=== PATIENT | female | born 1940 | race Hispanic/Latino ===

== ENCOUNTER 2016-11-19 09:01 | Inpatient (IN) | payer MEDICARE, BC ==
[2016-11-19 09:16] VITALS: BMI 17.7
--- NOTE | 2016-11-19 09:31 | ED PDOC ---
Arrival/HPI - General Chief Complaint: ENT Problem Time Seen by Provider: 11/19/16 09:20 Historian: Patient - History of Present Illness Narrative History of Present Illness (Text): 11/19/16 09:30 76 year old female whose past medical history includes scleroderma, Celiac's, COPD, hypertension, and thyroid disease sent to the emergency department by Dr. Booker for vomiting and difficulty swallowing. No fever or other complaints. Time/Duration: < week Symptom Onset: Gradual Symptom Course: Unchanged Modifying Factors (Text): None Associated Symptoms (Text): None Past Medical History - Provider Review Nursing Documentation Reviewed: Yes - Infectious Disease Hx of Infectious Diseases: None - Cardiac Hx Hypertension: Yes (pulmonary htn) - Pulmonary Hx Asthma: Yes Hx Chronic Obstructive Pulmonary Disease (COPD): Yes - Neurological Hx Migraine: Yes - HEENT Hx HEENT Disorder: (sinus infections) - Endocrine/Metabolic Hx Hypothyroidism: Yes - Integumentary Hx Dermatological Disorder: Yes (scleroderma dx 2 yrs ago) Other/Comment: scleroderma noted to hands arms and face - Musculoskeletal/Rheumatological Hx Falls: No - Gastrointestinal Hx Gastroesophageal Reflux: Yes (hiatal hernia) - Psychiatric Hx Depression: No Hx Emotional Abuse: No Hx Physical Abuse: No Hx Substance Use: No - Surgical History Hx Dilation and Curettage: Yes Hx Hysterectomy: Yes (ovaries removed) Other/Comment: "Mastoid surgery" - Suicidal Assessment Feels Threatened In Home Enviroment: No Family/Social History - Physician Review Nursing Documentation Reviewed: Yes Family/Social History: Unknown Family HX Smoking Status: Never Smoked Hx Alcohol Use: No Hx Substance Use: No Allergies/Home Meds Allergies/Adverse Reactions: Allergies Sulfa (Sulfonamide Antibiotics) Allergy (Verified 11/19/16 09:16) SWELLING Home Medications: Home Meds Medication Instructions Recorded Confirmed Desloratadine [Clarinex] 5 mg PO DAILY 11/13/13 11/19/16 Levothyroxine [Synthroid] 50 mcg PO DAILY 11/13/13 11/19/16 Tiotropium [Spiriva] 18 mcg IH DAILY 11/13/13 11/19/16 Folic Acid 1 mg PO DAILY 11/19/16 11/19/16 Omeprazole 20 mg PO DAILY 11/19/16 11/19/16 Sildenafil [Revatio] 20 mg PO DAILY 04/28/17 04/28/17 Spironolactone [Aldactone] 25 mg PO DAILY 11/19/16 11/19/16 Review of Systems - Physician Review All systems were reviewed & negative as marked: Yes - Review of Systems Constitutional: absent: Fevers Cardiovascular: absent: Chest Pain Gastrointestinal: Vomiting Physical Exam Vital Signs Reviewed: Yes Vital Signs Temp Pulse Resp BP Pulse Ox 11/19/16 12:30 91 H 17 140/75 90 L 11/19/16 12:19 98.0 F 69 18 128/74 95 11/19/16 11:02 75 18 131/77 95 11/19/16 10:41 77 17 131/77 93 L 11/19/16 09:14 98.3 F 79 18 138/72 98 Temperature: Afebrile Blood Pressure: Normal Pulse: Regular Respiratory Rate: Normal Appearance: Positive for: Well-Appearing, Non-Toxic, Comfortable Pain Distress: None Mental Status: Positive for: Alert and Oriented X 3 - Systems Exam Head: Present: Atraumatic, Normocephalic Pupils: Present: PERRL Extroacular Muscles: Present: EOMI Conjunctiva: Present: Normal Mouth: Present: Moist Mucous Membranes Neck: Present: Normal Range of Motion Respiratory/Chest: Present: Clear to Auscultation, Good Air Exchange. No: Respiratory Distress, Accessory Muscle Use Cardiovascular: Present: Regular Rate and Rhythm, Normal S1, S2. No: Murmurs Abdomen: Present: Normal Bowel Sounds. No: Tenderness, Distention, Peritoneal Signs Back: Present: Normal Inspection Upper Extremity: Present: Normal Inspection. No: Cyanosis, Edema Lower Extremity: Present: Normal Inspection. No: Edema Neurological: Present: GCS=15, CN II-XII Intact, Speech Normal Skin: Present: Warm, Dry, Normal Color. No: Rashes Psychiatric: Present: Alert, Oriented x 3, Normal Insight, Normal Concentration Medical Decision Making ED Course and Treatment: Impression: 76 year old female whose past medical history includes scleroderma, Celiac's, COPD, hypertension, and thyroid disease sent to the emergency department by Dr. Booker for vomiting and difficulty swallowing. Differential Diagnosis include but are not limited to: Plan: -- CT Neck -- Labs -- Reassess and disposition Prior Visits: Notes and results from previous visits were reviewed. Patient last seen in ED on 12/03/14 for dizziness and discharged home. Progress Notes: PROCEDURE: CT Neck, Chest, without contrast Zone Supervisor Firearms : Conor Matos MD IMPRESSION: Dilated fluid-filled esophagus. Large pericardial effusion. Small left pleural effusion Case discussed with Dr. Booker who accepts for admission, requests Dr. Ricci for consult. Dr. Ricci paged. 11/19/16 12:[address] Barakat, advises will likely do endoscopy today. - Lab Interpretations Lab Results: 11/19/16 09:30 11/19/16 09:30 Lab Results 11/19/16 09:30: Sodium 133, Potassium 4.4, Chloride 92 L, Carbon Dioxide 32, Anion Gap 13, BUN 13, Creatinine 0.6, Est GFR ( Amer) > 60, Est GFR (Non- Af Amer) > 60, Random Glucose 73, Calcium 9.3, Total Bilirubin 0.7, AST 32, ALT 34, Alkaline Phosphatase 101, Total Protein 8.2, Albumin 3.9, Globulin 4.3, Albumin/Globulin Ratio 0.9 L 11/19/16 09:30: PT 11.8, INR 1.09 H, APTT 29.2 11/19/16 09:30: WBC 6.9, RBC 4.14, Hgb 13.7, Hct 42.0, MCV 101.4, MCH 33.1, MCHC 32.6, RDW 13.4, Plt Count 272, MPV 9.8, Gran % 67.9, Lymph % (Auto) 20.5 L , [place] % (Auto) 8.4 H, Eos % (Auto) 2.6, Baso % (Auto) 0.6, Gran # 4.71, Lymph # 1.4, [place] # 0.6, Eos # 0.2, Baso # 0.04 - RAD Interpretation Radiology Orders: 11/19/16 09:25 NECK & CHEST W/O CONTRAST [CT] Stat - Medication Orders Current Medication Orders: Dextrose/Sodium Chloride (Dextrose 5%/0.45% Ns 1000 Ml) 1,000 mls @ 70 mls/hr IV .[id number] RAY Last Admin: 11/19/16 12:46 Dose: 70 mls/hr Levothyroxine Sodium (Synthroid) 50 mcg PO DAILY RAY Pantoprazole Sodium (Protonix Inj) 40 mg IVP DAILY RAY Last Admin: 11/19/16 12:46 Dose: 40 mg - Scribe Statement The provider has reviewed the documentation as recorded by the Cosme Forrest Provider Cosme Attestation: All medical record entries made by the Cosme were at my direction and personally dictated by me. I have reviewed the chart and agree that the record accurately reflects my personal performance of the history, physical exam, medical decision making, and the department course for this patient. I have also personally directed, reviewed, and agree with the discharge instructions and disposition. Disposition/Present on Arrival - Present on Arrival Any Indicators Present on Arrival: No History of DVT/PE: No History of Uncontrolled Diabetes: No Urinary Catheter: No History of Decub. Ulcer: No History Surgical Site Infection Following: None - Disposition Have Diagnosis and Disposition been Completed?: Yes Diagnosis: Esophageal stricture, Scleroderma Disposition: HOSPITALIZED Disposition Time: 12:00 Condition: FAIR
[2016-11-19 09:50] LABS: ADD MANUAL DIFF? NO
[2016-11-19 09:55] LABS: BASO # 0.04 [, K/mm3] (0.0-2.0); BASO % 0.6 % (0.0-3.0); EOS # 0.2 (0.0-0.7); EOS % 2.6 % (1.5-5.0); GRAN # 4.71 (1.4-6.5); GRAN % 67.9 % (50.0-68.0); LYMPH # 1.4 (1.2-3.4); LYMPH % 20.5 % (22.0-35.0); MEAN CELL VOLUME 101.4 fL (80.0-105.0); MEAN CORPUSCULAR HEMOGLOBIN 33.1 pg (25.0-35.0); MEAN CORPUSCULAR HGB CONC 32.6 g/dl (31.0-37.0); MEAN PLATELET VOLUME 9.8 fl (7.0-11.0); MONO # 0.6 (0.1-0.6); MONO % 8.4 % (1.0-6.0); PLATELET COUNT 272 [, 10^3/uL] (120.0-450.0); RED CELL DISTRIBUTION WIDTH 13.4 % (11.5-14.5); WHITE BLOOD COUNT 6.9 [, 10^3/ul] (4.5-11.0)
[2016-11-19 10:06] LABS: INR 1.09 (0.93-1.08); PARTIAL THROMBOPLASTIN TIME 29.2 Seconds (23.7-30.8)
[2016-11-19 10:07] LABS: ALB/GLOB RATIO 0.9 (1.1-1.8); ALKALINE PHOSPHATASE 101 U/L (38-133); ALT/SGPT 34 U/L (7-56); AST/SGOT 32 U/L (15-39); BILIRUBIN,TOTAL 0.7 mg/dL (0.2-1.3); BLOOD UREA NITROGEN 13 mg/dL (7-21); CALCIUM 9.3 mg/dL (8.4-10.5); CARBON DIOXIDE 32 mmol/L (21-33); CHLORIDE 92 mmol/L (98-107); GFR AFRICAN-AMERICAN > 60; GLUCOSE,RANDOM 73 mg/dL (70-110); POTASSIUM 4.4 mmol/L (3.6-5.0); SODIUM 133 mmol/L (132-148); TOTAL PROTEIN 8.2 g/dL (5.8-8.3)
--- NOTE | 2016-11-19 10:53 | CT ---
PROCEDURE: CT Neck, Chest, without contrast HISTORY: dysphagia COMPARISON: None. TECHNIQUE: Contrast dose: Radiation dose: Total exam DLP = 475 mGy-cm. This CT exam was performed using one or more of the following dose reduction techniques: Automated exposure control, adjustment of the mA and/or kV according to patient size, and/or use of iterative reconstruction technique. FINDINGS: CT OF THE NECK: PHARYNX: Nasopharynx: Unremarkable. Oropharnx: Unremarkable. Hypopharynx: Unremarkable. LYMPH NODES: Unremarkable. VASCULATURE: Unremarkable. GLANDS: Unremarkable. CERVICAL SPINE: Unremarkable. CT OF THE CHEST: LUNGS: Patchy bilateral infiltrates are seen posteriorly in the upper lobes. Image 28 series 4. MEDIASTINUM: Unremarkable thoracic aorta. No aneurysm or dissection. Normal sized heart. Pulmonary arterial truck unremarkable. No vascular congestion. No lymphadenopathy. The esophagus is dilated and filled with fluid and debris. There is no evidence of a discrete mass. This could be due to an esophageal stricture distally. PLEURA: There is a large pericardial effusion measuring 34 mm in maximal thickness. There is a small left pleural effusion BONES: No fracture. No destructive lesion. IMPRESSION: Dilated fluid-filled esophagus. Large pericardial effusion. Small left pleural effusion
[2016-11-19] MEDS ORDERED: Sodium Chloride 0.9% 1,000 ML IV SCH ×2 (12:00→16:30)
[2016-11-19] MEDS ORDERED: Dextrose 5%/0.45% NS 1,000 ML IV SCH (12:30)
[2016-11-19] MEDS ORDERED: Midazolam 2 MG/2 ML VIAL ONE (14:18)
[2016-11-19] MEDS ORDERED: Propofol 10 mg/ml Inj (20 ML) ONE (14:18)
[2016-11-19] MEDS: Sildenafil 20 MG TAB PO SCH (17:53)
[2016-11-19] MEDS: Dextrose 5%/0.45% NS 1,000 ML IV SCH (17:54)
[2016-11-19] MEDS ORDERED: Benzocaine/Menthol (Cepacol) Lozenge MT PRN (18:45)
[2016-11-19] MEDS ORDERED: Pneumococcal 23-Valent Vaccine IM ONE (20:52)
--- NOTE | 2016-11-19 22:20 | PN ---
DATE: 11/19/2016 HISTORY OF PRESENT ILLNESS: The patient is 76 years old, with a significant past medical history of scleroderma. She stated, according to the daughter who was by the bedside, she had potatoes, baby ca rrots and steak last night and in the middle of night, she started to have retrosternal discomfort an d this morning she was unable to even drink water and that was coming out, so they brought her to [facility] Room for further evaluation. Denies any fever or chills. No hemoptysis, no hematemesis, no f ever, no chills. PAST MEDICAL HISTORY: Is significant for: 1. Hypertension. 2. Scleroderma. 3. Peptic ulcer disease. 4. Pulmonary hypertension. 5. Carotid artery disease. 6. History of hypothyroidism. 7. History of intermittent migraine headaches. 8. COPD. ALLERGIES: SHE IS ALLERGIC TO SULFONAMIDES. MEDICATIONS AT HOME: She is on omeprazole 20 mg daily, Aldactone 25 daily, Revatio 20 mg daily, Synt hroid 50 mcg daily, Spiriva 18 mcg daily, Clarinex 5 mg daily and Folic acid 1 mg daily. SOCIAL HISTORY: She lives with relatives. Not much ambulatory. PHYSICAL EXAMINATION: GENERAL: She is awake and alert, able to communicate. VITAL SIGNS: She is afebrile, pulse 85, respirations 12, blood pressure 118/61. LUNGS: Bilateral fair airflow, no rhonchi or crackle. HEART: S1, S2 audible. ABDOMEN: Soft, nontender, no rebound, no guarding. NEUROLOGIC: The patient is awake and alert, communicative. EXTREMITIES: Bilateral leg, no edema. LABORATORY DATA: WBC 6.9, hemoglobin 13.7, hematocrit 42, platelets 72. PT 11.8, INR 1.09. Nursing Home Social Worker ry: Sodium 133, potassium 4.4, chloride 92, CO2 of 32, BUN 13, creatinine 0.6, blood sugar of 73. L FTs are within normal limits. CT scan of the chest and neck shows dilated esophagus, large per icardial effusion and small left pleural effusion. ASSESSMENT: 1. Foreign body, esophageal impaction. 2. Esophageal dilatation. 3. Scleroderma. 4. Pulmonary hypertension. 5. Hypothyroidism. PLAN: Will keep the patient n.p.o.; the patient was kept n.p.o., had endoscopy done by Dr. Ricci and foreign body was removed. She will be started on clear liquid and will resume her usual medicati on. I will continue her on a small dose of IV fluid. Continue Revatio and continue her on nebulizer treatment. If the patient remains stable, she will be discharged in a.m. I also instructed the fam luis member that she should be on pureed diet and with each bite she should drink some liquids to make it moist and keep her head at 45 degree all the time. Will reevaluate the patient in a.m. Mary Ellen Gonzalez MD cc: [phone] TT: 11/19/2016 19:26:41 Confirmation # [id number] Dictation # [id number] dinorah
[2016-11-20] MEDS ORDERED: Levothyroxine 50 MCG TAB PO SCH ×2 (06:30→10:00)
[2016-11-20] MEDS: Dextrose 5%/0.45% NS 1,000 ML IV SCH ×2 (06:57→11:24)
[2016-11-20 07:26] LABS: ADD MANUAL DIFF? NO
[2016-11-20 07:29] VITALS: BP 107/67; PULSE 80; RESP 20; TEMP 98.2; O2SAT 94
[2016-11-20 07:29] LABS: BASO # 0.05 [, K/mm3] (0.0-2.0); BASO % 0.6 % (0.0-3.0); EOS # 0.1 (0.0-0.7); GRAN # 6.51 (1.4-6.5); GRAN % 73.2 % (50.0-68.0); HEMATOCRIT 37.2 % (36.0-48.0); LYMPH # 1.4 (1.2-3.4); LYMPH % 15.7 % (22.0-35.0); MEAN CELL VOLUME 101.4 fL (80.0-105.0); MEAN CORPUSCULAR HGB CONC 32.5 g/dl (31.0-37.0); MEAN PLATELET VOLUME 9.8 fl (7.0-11.0); MONO # 0.8 (0.1-0.6); MONO % 9.5 % (1.0-6.0); PLATELET COUNT 254 [, 10^3/uL] (120.0-450.0); RED CELL DISTRIBUTION WIDTH 13.4 % (11.5-14.5); WHITE BLOOD COUNT 8.9 [, 10^3/ul] (4.5-11.0)
[2016-11-20 07:40] LABS: ALB/GLOB RATIO 0.9 (1.1-1.8); ALKALINE PHOSPHATASE 82 U/L (38-133); ALT/SGPT 34 U/L (7-56); AST/SGOT 34 U/L (15-39); BILIRUBIN,TOTAL 0.6 mg/dL (0.2-1.3); BLOOD UREA NITROGEN 12 mg/dL (7-21); CALCIUM 8.6 mg/dL (8.4-10.5); CARBON DIOXIDE 28 mmol/L (21-33); CHLORIDE 96 mmol/L (95-110); GFR AFRICAN-AMERICAN > 60; GLUCOSE,RANDOM 77 mg/dL (70-110); POTASSIUM 4.3 mmol/L (3.6-5.0); SODIUM 129 mmol/L (132-148); TOTAL PROTEIN 6.7 g/dL (5.8-8.3)
[2016-11-20] MEDS: Sildenafil 20 MG TAB PO SCH (11:19)
--- NOTE | 2016-11-20 14:45 | CON ---
DATE: 11/19/2016 REASON FOR CONSULTATION: Dysphagia. This 76-year-old patient with long history of scleroderma was eating some carrots and meat piece yesterday. After that, she developed great difficulty in swallowing and not able to even swallow the liquids. The patient has been wretching and vomiting. No bleeding. The patient did throw up some carrots. The patient is still not able to keep food or even liquids down. She came to the Emergency Room. No chest pain. Presently comfortable on exam. PAST MEDICAL HISTORY: Significant for hypertension and scleroderma, peptic ulcer disease, pulmonary hypertension, hypothyroidism this time ALLERGIES: SHE IS ALLERGIC TO SULFONOMIDES. SOCIAL HISTORY: Denies smoking. No alcohol. REVIEW OF SYSTEMS: Positive as above. Other systems reviewed. PHYSICAL EXAMINATION: GENERAL: The patient is lying on the bed, not in acute distress. HEENT: Atraumatic, anicteric. NECK: Supple. HEART: S1, S2 heard. LUNGS: Bilateral air entry present. ABDOMEN: Soft. There is no mass palpable. No tenderness. EXTREMITIES: No edema. NEUROLOGIC: Alert, oriented. Moves all the extremities. LABORATORY DATA: Hemoglobin 13.7, hematocrit 42, WBC 6.9. INR 1.06. LFTs normal. CT of the chest and neck was reviewed air fluid level in esophagus. IMPRESSION: This 76-year-old patient with scleroderma, presents with acute dysphagia, rule out foreign body impaction in the esophagus. The patient does have air fluid levels suggestive of obstruction. The informed consent was obtained for endoscopic evaluation. ENDOSCOPY The patient subsequently underwent upper GI endoscopy after intubation. The patient's oral cavity was small, unable to open the mouth for passage of the mouth piece. . After intubation, carefully the 27-scope was passed on the side with gentle maneuver A large amount of carrots and meat pieces removed. The patient tolerated the procedure and was sent to the [place] floor. PLAN The present plan is to start the patient on a liquid diet. The patient will need to be on only diet in the future, in view of slightly tortuous esophagus and also scleroderma with significant motility disfunction, which is a contributing factor. Thank you very much for allowing me to participate in the care of this patient. Jose Luis Ricci MD cc: [phone] TT: 11/20/2016 08:22:09 Confirmation # [id number] Dictation # [id number] jn SHELLY
--- NOTE | 2016-11-20 22:10 | PN ---
DATE: 11/20/2016 SUBJECTIVE: This patient was seen and evaluated earlier. The patient is comfortable. The patient w as tolerating the clear liquid diet. PHYSICAL EXAMINATION: VITAL SIGNS: Temperature is 97, blood pressure is 121/69, pulse is 83, O2 sat is 96. HEENT: Atraumatic, anicteric. NECK: Supple. HEART: S1, S2 heard. LUNGS: Bilateral air entry present. ABDOMEN: Soft. There is no mass palpable. No tenderness. IMPRESSION: This is a 76-year-old patient with scleroderma who had a food impaction in the esophagus and who is status post esophagogastroduodenoscopy and removal on clear liquids, tolerating. Will ad mcgowan the diet to pureed diet. The concern is the patient has scleroderma with an angulated esophagu s and also significant motility dysfunction. It is a reasonable thing for her age group with signifi cant dysmotility problem. She would benefit from long-term pureed diet. The patient also advised to take small amounts and be careful before swallowing. The technically difficult endoscopy was challenging because the patient is unable to open the mouth a nd only small area. She was able to open and we were fortunate to intubate and then were able to do it carefully. The risks had been explained to the patient to avoid in the future similar issues. Thank you very much for allowing us to participate in the care of the patient. Jose Luis Ricci MD cc: [phone] TT: 11/20/2016 22:09:39 Confirmation # [id number] Dictation # [id number] dn
--- NOTE | 2017-01-13 08:11 | DS ---
ADDENDUM to progress noted written on 11/19/2016. The patient was brought in by the family member after she had dysphagia and difficulty swallowing. S he was nauseous. She was vomiting. She was found to have foreign body in esophagus. Dr. Radhames cunha id emergency endoscopy and all the food particles were removed. Post procedure, the patient was give n food, she tolerated well. She was discharged on 11/19 in stable condition. Mary Ellen Gonzalez MD cc: [phone] TT: 01/12/2017 22:31:57 jn
== END 2016-11-20 14:16 | disposition home or self-care (01) | DRG 394 ==
LOC: ED 09:01 → ERH 11:18 → 5RNO 13:08
PROVIDERS: ADMIT Internal Medicine; ATTEND Internal Medicine
PROC: 0DC58ZZ Extirpation of Matter from Esophagus, Via Natural or Artificial Opening Endoscopic (ICD-10-PCS; 2016-11-19)
PROC: 0D758ZZ Dilation of Esophagus, Via Natural or Artificial Opening Endoscopic (ICD-10-PCS; principal; 2016-11-19 16:00)
DX: T18.128A Food in esophagus causing other injury, initial encounter (principal); I31.3 Pericardial effusion (noninflammatory); J90 Pleural effusion, not elsewhere classified; I27.2 Other secondary pulmonary hypertension; M34.9 Systemic sclerosis, unspecified; K22.10 Ulcer of esophagus without bleeding; J44.9 Chronic obstructive pulmonary disease, unspecified; I10 Essential (primary) hypertension; J45.909 Unspecified asthma, uncomplicated; G43.909 Migraine, unspecified, not intractable, without status migrainosus; E03.9 Hypothyroidism, unspecified; K21.9 Gastro-esophageal reflux disease without esophagitis; K44.9 Diaphragmatic hernia without obstruction or gangrene; K22.2 Esophageal obstruction; Z87.11 Personal history of peptic ulcer disease; Z90.710 Acquired absence of both cervix and uterus; Z90.722 Acquired absence of ovaries, bilateral; Z79.899 Other long term (current) drug therapy; Z88.2 Allergy status to sulfonamides; R40.2412 Glasgow coma scale score 13-15, at arrival to emergency department

== ENCOUNTER 2017-08-24 03:01 | Emergency (ER) | payer MEDICARE ==
[2017-08-24 03:21] VITALS: BMI 15.0
[2017-08-24 03:26] VITALS: TEMP 97.6
--- NOTE | 2017-08-24 03:26 | ED PDOC ---
Arrival/HPI - General Time Seen by Provider: 08/24/17 03:04 Historian: Patient - History of Present Illness Narrative History of Present Illness (Text): 08/24/17 03:15 Kristina Lopez is a 77 year old female, whose past medical history includes hypertension, CVA, COPD, and hypothyroidism, who presents to the emergency department complaining of weakness s/p mechanical fall. Patient reports she slipped, fell, and then began to feel weakness. Patient also notes having diarrhea since one day ago. Additionally, she states being on hospice and came to the emergency department for a check up. No other complaints were made. Patient did not hit her head or lose consciousness. Time/Duration: Prior to Arrival Symptom Onset: Sudden Symptom Course: Unchanged Activities at Onset: Light Context: Slipped Past Medical History - Provider Review Nursing Documentation Reviewed: Yes - Infectious Disease Hx of Infectious Diseases: None - Cardiac Hx Cardiac Disorders: Yes Hx Hypertension: Yes (pulmonary htn) Other/Comment: CAROTID STENOSIS - Pulmonary Hx Respiratory Disorders: Yes Hx Asthma: Yes Hx Chronic Obstructive Pulmonary Disease (COPD): Yes (HOME O2) Other/Comment: SMOKED CIGARETTES H/O QUIT - Neurological Hx Neurological Disorder: Yes HX Cerebrovascular Accident: Yes Hx Migraine: Yes - HEENT Hx HEENT Disorder: Yes (sinus infections) - Endocrine/Metabolic Hx Endocrine Disorders: Yes Hx Hypothyroidism: Yes - Hematological/Oncological Hx Blood Transfusions: No - Integumentary Hx Dermatological Disorder: Yes (scleroderma dx 2 yrs ago) Other/Comment: scleroderma noted to hands arms and face - Musculoskeletal/Rheumatological Hx Musculoskeletal Disorders: Yes (MASTOID SX) Hx Falls: No - Gastrointestinal Hx Gastrointestinal Disorders: Yes Hx Gastroesophageal Reflux: Yes (hiatal hernia) Other/Comment: CELIAC DSE. - Genitourinary/Gynecological Hx Genitourinary Disorders: Yes (HYSTERECTOMY) - Psychiatric Hx Depression: No Hx Emotional Abuse: No Hx Physical Abuse: No Hx Substance Use: No - Surgical History Hx Hysterectomy: Yes Other/Comment: MASTOID SX - Anesthesia Hx Anesthesia Reactions: No Hx Malignant Hyperthermia: No - Suicidal Assessment Feels Threatened In Home Enviroment: No Family/Social History - Physician Review Nursing Documentation Reviewed: Yes Family/Social History: Unknown Family HX Smoking Status: Former Smoker Hx Alcohol Use: Yes (OCCASIONALLY OR NOT AT ALL) Hx Substance Use: No Allergies/Home Meds Allergies/Adverse Reactions: Allergies Sulfa (Sulfonamide Antibiotics) Allergy (Verified 11/19/16 18:46) SWELLING Home Medications: Home Meds Medication Instructions Recorded Confirmed Omeprazole 20 mg PO DAILY 11/19/16 08/24/17 Sildenafil [Revatio] 20 mg PO TID 11/19/16 08/24/17 Spironolactone [Aldactone] 1 - 2 tab PO DAILY 11/19/16 08/24/17 Ambrisentan [Letairis] 5 mg PO DAILY 08/24/17 08/24/17 Umeclidinium Brm/Vilanterol Tr 1 each IH DAILY 08/24/17 08/24/17 [Anoro Ellipta 62.5-25 Mcg INH] Review of Systems - Physician Review All systems were reviewed & negative as marked: Yes - Review of Systems Constitutional: Fatigue. absent: Fevers Respiratory: absent: SOB Cardiovascular: absent: Chest Pain Gastrointestinal: absent: Abdominal Pain Neurological: absent: Headache Physical Exam Vital Signs Temp Pulse Resp BP Pulse Ox 08/24/17 07:00 80 18 95/60 L 95 08/24/17 05:18 84 22 125/85 93 L 08/24/17 03:21 97.6 F 66 20 126/86 97 Appearance: Positive for: Well-Appearing, Non-Toxic, Comfortable Pain Distress: None Mental Status: Positive for: Alert and Oriented X 3 - Systems Exam Head: Present: Atraumatic, Normocephalic Pupils: Present: PERRL Extroacular Muscles: Present: EOMI Conjunctiva: Present: Normal Neck: Present: Normal Range of Motion. No: MIDLINE TENDERNESS Respiratory/Chest: Present: Tachypneic. No: Good Air Exchange Cardiovascular: Present: Regular Rate and Rhythm, Normal S1, S2. No: Murmurs Abdomen: Present: Normal Bowel Sounds. No: Tenderness, Distention, Peritoneal Signs, Rebound, Guarding Upper Extremity: Present: Normal Inspection, Normal ROM, NORMAL PULSES, Neurovascularly Intact, Capillary Refill < 2s. No: Cyanosis, Edema, Tenderness , Swelling, Erythema, Deformity Lower Extremity: Present: Normal Inspection, NORMAL PULSES, Normal ROM, Neurovascularly Intact, Capillary Refill < 2 s. No: Edema, Cyanosis, Tenderness , Swelling, Erythema, Deformity Neurological: Present: GCS=15, CN II-XII Intact, Speech Normal Skin: Present: Warm, Dry, Normal Color. No: Rashes Psychiatric: Present: Alert, Oriented x 3, Normal Insight, Normal Concentration Medical Decision Making ED Course and Treatment: 08/24/17 Impression: 77 year old female who is tachypneic and complaining of weakness s/p mechanical fall prior to arrival. Plan: -- EKG -- Chest X-ray -- X-ray pelivs -- LS x-ray -- Thoracic spine x-ray -- Labs -- Sodium Chloride -- Reassess and disposition patient is family requests. Fully aware of the risk were elevated troponin however the patient is o hospice is a DNR and would prefer to be home I will honor the patient wishes Progress Notes: 08/24/17 06:32 - Lab Interpretations Lab Results: 08/24/17 03:50 08/24/17 03:50 Lab Results 08/24/17 03:50: Sodium 124 L, Potassium 5.7 H* D, Chloride 85 L, Carbon Dioxide 32, Anion Gap 13, BUN 18, Creatinine 0.7, Est GFR ( Amer) > 60, Est GFR ( Non-Af Amer) > 60, Random Glucose 85, Calcium 9.3, Total Bilirubin 0.6, AST 57 H , ALT 48, Alkaline Phosphatase 112, Troponin I 0.71 H* D, Total Protein 7.8, Albumin 4.0, Globulin 3.8, Albumin/Globulin Ratio 1.0 L 08/24/17 03:50: WBC 7.0 D, RBC 3.96, Hgb 13.2, Hct 40.9, MCV 103.3, MCH 33.3, MCHC 32.3, RDW 12.9, Plt Count 295, MPV 9.5, Gran % 79.3 H, Lymph % (Auto) 13.4 L, [place] % (Auto) 5.8, Eos % (Auto) 1.1 L, Baso % (Auto) 0.4, Gran # 5.56, Lymph # (Auto) 0.9 L, [place] # (Auto) 0.4, Eos # (Auto) 0.1, Baso # (Auto) 0.03 I have reviewed the lab results: Yes - RAD Interpretation Radiology Orders: 08/24/17 03:23 DORSAL (THORACIC) SPINE [RAD] Stat LS SPINE WITH OBL > 18 YRS OLD [RAD] Stat 08/24/17 03:24 PELVIS W/OBLIQUES (3VWS) [RAD] Stat 08/24/17 03:25 CHEST ONE VIEW [RAD] Stat Novelty Balloon Assembler And Packer: Radiologist - EKG Interpretation EKG Interpretation (Text): 08/24/17 06:31 eKG normal sinus rhythm rate of [address] segment changes Interpreted by ED Physician: Yes Type: 12 lead EKG - Medication Orders Current Medication Orders: Discontinued Medications Acetaminophen (Tylenol 325mg Tab) 650 mg PO STAT STA Stop: 08/24/17 05:43 Last Admin: 08/24/17 05:52 Dose: 325 mg Sodium Chloride (Sodium Chloride 0.9%) 1,000 mls @ 80 mls/hr IV .[id number] [id number] Last Admin: 08/24/17 03:53 Dose: 80 mls/hr eMAR Start Stop Document 08/24/17 03:53 CNR (Rec: 08/24/17 03:53 CNR [facility]-[id number]) Intravenous Solution Start Date 08/24/17 Start Time 03:53 - Scribe Statement The provider has reviewed the documentation as recorded by the Scribe Raisa Tyson Provider Scribe Attestation: All medical record entries made by the Scribe were at my direction and personally dictated by me. I have reviewed the chart and agree that the record accurately reflects my personal performance of the history, physical exam, medical decision making, and the department course for this patient. I have also personally directed, reviewed, and agree with the discharge instructions and disposition. Disposition/Present on Arrival - Present on Arrival Any Indicators Present on Arrival: No History of DVT/PE: No History of Uncontrolled Diabetes: No Urinary Catheter: No History Surgical Site Infection Following: None - Disposition Have Diagnosis and Disposition been Completed?: Yes Diagnosis: Scleroderma, Fall Disposition: HOME/ ROUTINE Disposition Time: 07:00 Condition: FAIR Referrals: Alexey Booker MD [Primary Care Provider] - Follow up with primary Forms: Video Passports (Amharic)
[2017-08-24] MEDS: Sodium Chloride 0.9% 1,000 ML IV SCH (03:53)
[2017-08-24 04:29] LABS: BASO # 0.03 K/mm3 (0.0-2.0); BASO % 0.4 % (0.0-3.0); EOS # 0.1 (0.0-0.7); EOS % 1.1 % (1.5-5.0); GRAN # 5.56 (1.4-6.5); GRAN % 79.3 % (50.0-68.0); HEMOGLOBIN 13.2 g/dL (12.0-16.0); LYMPH # 0.9 (1.2-3.4); LYMPH % 13.4 % (22.0-35.0); MEAN CELL VOLUME 103.3 fl (80.0-105.0); MEAN CORPUSCULAR HEMOGLOBIN 33.3 pg (25.0-35.0); MEAN CORPUSCULAR HGB CONC 32.3 g/dl (31.0-37.0); MEAN PLATELET VOLUME 9.5 fl (7.0-11.0); MONO # 0.4 (0.1-0.6); MONO % 5.8 % (1.0-6.0); RBC 3.96 10^6/uL (3.5-6.1); RED CELL DISTRIBUTION WIDTH 12.9 % (11.5-14.5)
[2017-08-24 05:24] LABS: ALT/SGPT 48 U/L (7-56); AST/SGOT 57 U/L (14-36); BLOOD UREA NITROGEN 18 mg/dL (7-21); CALCIUM 9.3 mg/dL (8.4-10.5); GFR AFRICAN-AMERICAN > 60; GFR NON-AFRICAN AMERICAN > 60; TROPONIN I 0.71 ng/mL
[2017-08-24 07:14] VITALS: BP 95/60; PULSE 80; RESP 18; O2SAT 95
--- NOTE | 2017-08-24 10:52 | RAD ---
PROCEDURE: CHEST RADIOGRAPH, 1 VIEW HISTORY: pain COMPARISON: 11/13/2013 FINDINGS: LUNGS: There is severe pulmonary venous congestion. No focal consolidation. PLEURA: No pneumothorax. Suspect small left pleural effusion. CARDIOVASCULAR: Again seen is severe cardiomegaly P OSSEOUS STRUCTURES: No significant abnormalities. VISUALIZED UPPER ABDOMEN: Normal. OTHER FINDINGS: None. IMPRESSION: Severe cardiomegaly, pulmonary venous congestion and small pleural effusion, concerning for developing congestive heart failure.
--- NOTE | 2017-08-24 10:57 | RAD ---
HISTORY: Fall COMPARISON: No prior. FINDINGS: BONES: There is diffuse bone demineralization. There is no acute fracture or bone destruction. DISC SPACES: There is multilevel degenerative disc disease with anterior spurring and reduced disc heights. SOFT TISSUES: Normal. OTHER FINDINGS: None. IMPRESSION: No acute fracture. Multilevel degenerative disc disease.
--- NOTE | 2017-08-24 11:02 | RAD ---
PROCEDURE: Radiographs of the Lumbar Spine. HISTORY: Fall COMPARISON: No prior. FINDINGS: BONES: There is diffuse bone demineralization. There is no acute fracture or bone destruction. Bone alignment is normal. There is normal lumbar lordosis. DISC SPACES: There is multilevel degenerative disc disease, worse at L5-S1 OTHER FINDINGS: None. IMPRESSION: Severe diffuse bone demineralization. No acute fracture.
--- NOTE | 2017-08-24 11:06 | RAD ---
PROCEDURE: Radiographs of the pelvis. HISTORY: Fall COMPARISON: None. FINDINGS: BONES: The pelvic ring is intact. There is no acute fracture or bone destruction. There is diffuse bone demineralization. JOINTS: The joint spaces are preserved. 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 There is mild osteitis pubis. OTHER FINDINGS: There are extensive periarticular calcifications on the right. IMPRESSION: No acute displaced fracture or dislocation. Please note occult fractures cannot be excluded on plain radiographs. If there is a persistent clinical concern, an MRI of the hip may be performed for further evaluation.
--- NOTE | 2017-08-24 13:03 | CARD ---
APPROVED REPORT EKG Measurement Heart [id number] IN [id number] <Conclusion> Normal sinus rhythm Left axis deviation Anteroseptal infarct, age undetermined Abnormal ECG
== END 2017-08-24 08:15 | disposition home or self-care (01) ==
LOC: ED 03:01
DX: M34.9 Systemic sclerosis, unspecified (principal); W01.0XXA Fall on same level from slipping, tripping and stumbling without subsequent striking against object, initial encounter; Y92.9 Unspecified place or not applicable; I10 Essential (primary) hypertension; Z86.73 Personal history of transient ischemic attack (TIA), and cerebral infarction without residual deficits; Z87.891 Personal history of nicotine dependence
CPT/HCPCS: 71045; 72070; 72110; 72190; 80053; 84484; 85025; 93005; 99285; J7040